=== PATIENT | male | born 1980 | race African-American/Black ===

== ENCOUNTER 2018-10-02 23:42 | Emergency (ER) | payer SELFPAY ==
[~2018-10-02] VITALS: Ht 177.8 cm; Wt 70.3 kg
[2018-10-02 23:45] VITALS: BP 135/87
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
[2018-10-03] MEDS ORDERED: IBUP-1060 PO (00:50)
[2018-10-03] MEDS ORDERED: CEPH-264 PO (00:50)
[2018-10-03] MEDS ORDERED: DIPHTH,PERTUSS(ACELL),TET TOX 0.5 ML DISP.SYRIN. VAX IM ONE (01:00)
[2018-10-03] MEDS ORDERED: LIDOCAINE 1%/EPI 1:100,000 20 ML VIAL. INJ ONE (01:00)
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
[2018-10-03] MEDS ORDERED: NEOMY/BACITR/POLYMYXIN OINT PACKET. TP ONE (02:30)
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
== END 2018-10-03 02:36 | disposition home or self-care (01) ==
LOC: ER 23:42
DX: S01.81XA Laceration without foreign body of other part of head, initial encounter (principal); M25.532 Pain in left wrist; M54.2 Cervicalgia; F10.129 Alcohol abuse with intoxication, unspecified; Y90.9 Presence of alcohol in blood, level not specified; V43.52XA Car driver injured in collision with other type car in traffic accident, initial encounter; Y93.89 Activity, other specified; Y92.410 Unspecified street and highway as the place of occurrence of the external cause; Y99.8 Other external cause status
CPT/HCPCS: 12013; 70450; 70486; 72125; 73110; 90471; 90715; 99284; J3490

== ENCOUNTER 2018-10-11 10:27 | Emergency (ER) | payer SELFPAY ==
[~2018-10-11] VITALS: Ht 180.3 cm; Wt 72.1 kg
[~2018-10-11 10:27] MED LIST: CEPH-264 PO; IBUP-1060 PO
[2018-10-11 10:30] VITALS: BP 132/86
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
== END 2018-10-11 10:58 | disposition home or self-care (01) ==
LOC: ER 10:27
DX: S01.81XD Laceration without foreign body of other part of head, subsequent encounter (principal); X58.XXXD Exposure to other specified factors, subsequent encounter
CPT/HCPCS: 99281; 99283

== ENCOUNTER 2021-02-01 11:10 | Emergency (ER) | payer BC ==
[~2021-02-01] VITALS: Ht 172.7 cm; Wt 74.0 kg
[2021-02-01 11:32] VITALS: BP 139/95
[2021-02-01] MEDS ORDERED: DOXY100T PO (11:38)
[2021-02-01 11:39] LABS: BILIRUBIN,URINE NEGATIVE (NEG); CLARITY,URINE CLEAR; COLOR,URINE YELLOW; NITRITE,URINE NEGATIVE (NEG); PROTEIN,URINE NEGATIVE (NEG-TRACE)
--- NOTE | 2021-02-01 11:39 | PHYS DOC ---
Past Medical History Past Medical History: No Pertinent History Past Surgical History: Other Additional Past Surgical Histo: "TOUNGE TUMOR" Smoking Status: Never Smoker Alcohol Use: Occasionally Drug Use: None General Adult EDM: Chief Complaint: URINARY FREQUENCY HPI: HPI: Patient is a 40 year old male who presents to the ED today complaining of dysuria and penile discharge, symptoms began yesterday. Patient is concerned about STDs, would like to be tested and treated. Review of Systems: Review of Systems: Constitutional: Denies fever or chills. [] : Reports dysuria and penile discharge Musculoskeletal: Denies back pain or joint pain. [] Integument: Denies rash. [] Neurologic: Denies headache, focal weakness or sensory changes. [] Psychiatric: Denies depression or anxiety. [] Heart Score: C/O Chest Pain: N/A Risk Factors: Risk Factors: DM, Current or recent (<one month) smoker, HTN, HLP, family history of CAD, obesity. Risk Scores: Score 0 - 3: 2.5% MACE over next 6 weeks - Discharge Home Score 4 - 6: 20.3% MACE over next 6 weeks - Admit for Clinical Observation Score 7 - 10: 72.7% MACE over next 6 weeks - Early Invasive Strategies Current Medications: Current Medications Medications (Trade) Dose Ordered Sig/Jordy Start Time Stop Time Status Last Admin Dose Admin Ceftriaxone Sodium (Rocephin Im) 500 mg 1X ONCE 02/01/21 11:45 02/01/21 11:46 UNV Doxycycline Hyclate (Vibra-Tab) 100 mg 1X ONCE 02/01/21 11:45 02/01/21 11:46 UNV Metronidazole (Flagyl) 2,000 mg 1X ONCE 02/01/21 11:45 02/01/21 11:46 UNV Allergies: Allergies: Allergies Coded Allergies Type Severity Reaction Last Updated Verified No Known Drug Allergies 10/03/18 No Physical Exam: PE: Constitutional: Well developed, well nourished, no acute distress, non-toxic appearance. [] Skin: Warm, dry, no erythema, no rash. [] Back: No tenderness, no CVA tenderness. [] Extremities: No tenderness, no cyanosis, no clubbing, ROM intact, no edema. [] Neurologic: Alert and oriented X 3, normal motor function, normal sensory function, no focal deficits noted. [] Psychologic: Affect normal, judgement normal, mood normal. [] EKG: EKG: [] Radiology/Procedures: Radiology/Procedures: [] Course & Med Decision Making: Course & Med Decision Making Pertinent Labs and Imaging studies reviewed. (See chart for details) This a 40-year-old male patient presented to the ED with dysuria and penile discharge, he is concerned about STDs. STD treatment was started in the ED, Rx for doxycycline sent to the pharmacy. STD education provided. Dragon Disclaimer: David Disclaimer: This electronic medical record was generated, in whole or in part, using a voice recognition dictation system. Departure Departure Impression: Primary Impression: Concern about STD in male without diagnosis Disposition: HOME / SELF CARE / HOMELESS Condition: STABLE Referrals: NO PCP (PCP) Contact all your sex partners and ask them to seek treatment Patient Instructions: Sexually Transmitted Disease Additional Instructions: You were treated for sexually transmitted diseases. Your prescription for doxycycline was sent to your pharmacy. Please take the medicine as prescribed until completed. Do not have any sexual intercourse for 2 weeks. Use protection at all times. Contact all your sex partners and and let them know you were treated for STDs of and ask them to seek treatment too. Scripts Doxycycline Hyclate (DOXYCYCLINE HYCLATE) 100 Mg Tablet 1 TAB PO BID, #14 TAB Prov: ERVIN REYES APRN 02/01/21 ERVIN REYES APRN Feb 01, 2021 11:38
[2021-02-01] MEDS ORDERED: DOXYCYCLINE HYCLATE 100 MG TABLET PO ONE (11:45)
[2021-02-01] MEDS ORDERED: metroNIDAZOLE 500 MG TABLET PO ONE (11:45)
[2021-02-01] MEDS ORDERED: cefTRIAXone IM 500 MG VIAL. IM ONE (11:45)
[2021-02-01 12:02] LABS: BACTERIA,URINE FEW /HPF (0-FEW); RBC,URINE RARE /HPF (0-2)
== END 2021-02-01 12:29 | disposition home or self-care (01) ==
LOC: ER 11:10
DX: R30.0 Dysuria (principal); Z20.2 Contact with and (suspected) exposure to infections with a predominantly sexual mode of transmission; R36.9 Urethral discharge, unspecified
CPT/HCPCS: 81001; 87086; 87491; 87591; 96372; 99283; J0696